=== PATIENT | male | born 1940 | race Caucasian/White ===

== ENCOUNTER → 2017-08-05 15:47 | Outpatient (CLI) | payer OTHER, MEDICARE, SELFPAY ==
--- NOTE | 2017-08-05 | FLU_PTH ---
PATIENT: MANN ANNE LOC: [facility] U#:[id number] AGE/SX: 84/M ROOM: RE08/05/[address]: Dr. Morgan Carmen MD : 1940 BED: DIS: SPEC #: [id number] RECD: 08/07/17 09:18 STATUS: SAJI IVETTE #: [id number] AMIE: 08/05/17 00:[address]: Morgan Carmen DEPT: CYTOLOGY RECD BY: Carlos Stoll Tissues: Neck, NOS Procedures: Special Stain Group II Surgery Specimen Level IV Cytospin Fluid HEADER OPERATION: Fine needle aspiration biopsy PRE-OP DIAGNOSIS: Localized swelling, mass and lump, neck R22.1; squamous cell carcinoma of skin, previously excised with healing incision over left mu-ism C44.92 TISSUE SUBMITTED: Fine needle aspiration biopsy DIAGNOSIS CYTOLOGY Neck mass, FNA (smears, cytospin and cell block): A few atypical squamous cells including keratinizing squamous cells are noted. SJ:alana 08/07/17 COMMENT If there is a high suspicion of malignancy, biopsy of the lesion is suggested if clinically indicated. CYTOLOGY STUDY Slides are reviewed. CYTOLOGY GROSS Received is 30 ml of red cloudy fluid labeled with the patient's name and and designated per the requisition as neck mass. Submitted for cytology preparation including cell block. / 08/06/17 TC:5 CPT: 23523, 76741
== END ==
PROVIDERS: Visit Provider Otolaryngology
DX: R22.1 Localized swelling, mass and lump, neck (principal)
CPT/HCPCS: 88108; 88305; 88313

== ENCOUNTER 2017-09-26 16:56 | Observation (INO) | payer OTHER, MEDICARE, SELFPAY ==
[2017-09-26] VITALS (9 sets, daily range): BP systolic 111–156; BP diastolic 69–95; PULSE 98–115; RESP 16–18; TEMP 36.2–36.9; O2SAT 90–98; BMI 30.9
--- NOTE | 2017-09-26 | PAR_PTH ---
PATIENT: MANN ANNE LOC: [facility] U#:[id number] AGE/SX: 77/M ROOM: NH320 RE09/26/[address]: Dr. Morgan Carmen MD : 1940 BED: 1 DIS: 09/27/2017 SPEC #: [id number] RECD: 09/26/17 14:30 STATUS: SAJI REReynaldo #: [id number] AMIE: 09/26/17 00:[address]: Morgan Carmen DEPT: SURGICAL PATHOLOGY RECD BY: Tracy Arzola ENTERED: 09/26/17 14:52 SP TYPE: PAROTID OTHR DR: Dr. Pete Jones, DO Tissues: A - Parotid gland, NOS B - LYMPH NODE BIOPSY Procedures: Frozen Section (charge) Surgery Specimen Level IV HEADER OPERATION: Parotidectomy, advancement flap reconstruction PRE-OP DIAGNOSIS: Metastatic squamous cell carcinoma TISSUE SUBMITTED: A - Left metastatic intraparotid malignancy, single stitch short ? posterior, long double stitch ? superior, B ? Left subcutaneous mass, C. Left superficial parotid FROZEN SECTION DIAGNOSIS A. Left metastatic intraparotid malignancy, two lesions: Both lesions, squamous cell carcinoma. Smaller lesion, margins are free of carcinoma. Larger lesion, margins are grossly free of carcinoma. B. Left subcutaneous mass, biopsy: Lymph node tissue, negative for metastatic carcinoma. SJ:alana 09/26/17 MICROSCOPIC DIAGNOSIS A. Left metastatic intraparotid malignancy, excisional biopsy: Invasive moderately differentiated squamous cell carcinoma x2. See cancer summary below. B. Left subcutaneous mass, biopsy: Lymph node tissue, negative for metastatic carcinoma. C. Left parotid, superficial parotidectomy:: Major salivary gland tissue, negative carcinoma. Four lymph nodes, negative for metastatic carcinoma. SQUAMOUS CELL CARCINOMA SUMMARY (including specimen A,B, C): Procedure - Excision Tumor site - Face Tumor size ? smaller lesion 07 x 0.5 x 0.2 cm, larger lesion 3 x 2 x 2 cm Histologic Type ? squamous cell carcinoma Histologic Grade - well to moderately differentiated Maximum tumor thickness ? 2 cm Anatomic level ? carcinoma invades subcutaneous tissue, underlying skeletal muscle tissue Margins: Peripheral margins ? uninvolved by invasive carcinoma Deep margin ? focally involved by invasive carcinoma a larger lesion) Smaller tumor is 0.4 cm away from the superior margin Larger tumor edge 0.4 cm away from the posterior margin Lymph-Vascular invasion ? not identified Perineural invasion ? present, frequent Lymph nodes: Number examined ? 5 (specimen B and C) Number involved by metastatic ca - 0 Additional pathologic findings ? adjacent parotid salivary gland tissue (parotid gland) negative for carcinoma Pathologic Staging: pT2, pN0, MX The above summary is in compliance with [employer] (CAP) Cancer Protocols Checklist and [place] [employer] on Cancer (AJCC), Staging Manual, 7th Ed. COMMENT C. Parotid gland tissue appears unremarkable. Please make reference to previous specimen ([id number] neck mass, FNA with a diagnosis of a few atypical squamous cells including keratinizing squamous cells are noted. Case has been reviewed in consultation with Dr. Polk who concurs with the above diagnosis. IDC:AM MICROSCOPIC DESCRIPTION Slides are reviewed. GROSS DESCRIPTION A - Received fresh for frozen section diagnosis labeled with the patient's name is a specimen designated left metastatic intraparotid malignancy, single stitch short ? posterior, long double stitch ? superior.? The specimen consists of a piece of skin with underlying tissue measuring 8.5 x 4 x 1 cm. The specimen is irregular in shape. The specimen is inked as follows: superior ? blue, inferior ? green, anterior ? yellow, posterior ? black and deep margin ? orange. The skin surface shows two lesions. The smaller one 0.4 cm away from the superior margin measures 0.7 x 0.5 x 0.2 cm and the larger raised nodular lesion measures 3 x 2 x 2 cm. This is 0.4 cm away from the closest posterior margin. Sections of both nodules reveal jacobson solid cut surfaces. Two frozen sections are done, 1 - smaller lesion, entirely submitted, 2 ? one section from the larger lesion including posterior margin. More dictation will follow after overnight fixation. More sections are submitted as follows: 3 ? superior inferior margin. 4 ? uninvolved portion of the skin. 5-11 - entire tumor, 12 contains tumor to just inferior margin, 13 ? contained tumor just to inferior margin. Both tumors are submitted in entirety. / CARSON:alana 09/26/17/Susana 09/28/17 B - Received fresh for frozen section diagnosis labeled with the patient's name is a specimen designated left subcutaneous mass. The specimen consists of a piece of jacobson soft tissue measuring 0.5 x 0.5 x 0.2 cm. The entire specimen is submitted for frozen section diagnosis in one cassette. / CARSON:alana 09/26/17 C - Received in fixative is one container labeled with the patient's name and designated left superficial parotid. The specimen weighs 27 grams and measures 7 x 4.5 x 2.5 cm. The external surface is inked black. Serial section did not reveal any mass lesion. [employer] sections are submitted in 8 cassettes. Susana 09/28/17 TC: 0 CPT: 05712K0, 62234, 82874 x2, 23502
[2017-09-26 11:28] LABS: International Normalized Ratio 1.2; Prothrombin Time (Protime)PT. 14.8 SECONDS (11.7-14.9)
[2017-09-26 11:29] LABS: Partial Thromboplast Time 41.7 Seconds (24.1-36.2)
[2017-09-26 11:30] LABS: Bedside Glucose 142 mg/dL (70-110)
[2017-09-26 12:00] LABS: AST(SGOT) 10 U/L (15-37); Alanine Aminotransfer ALT/SGPT 19 U/L (16-61); Albumin, Serum 3.7 g/dL (3.2-5.0); Alkaline Phosphatase 86 U/L (45-117); Bilirubin, Direct 0.21 mg/dL (0.00-0.30); Globulin 4.3 g/dL (2.2-4.2); Hemoglobin A1c 6.8 % (4.2-6.3)
[2017-09-26] MEDS: Bacitracin 500 UNITS/GM PACKET (15:56)
--- NOTE | 2017-09-26 16:27 | PCM.OPRPT ---
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 Most recently he had been excised over the left jainism which locally recurred as well as an enlarging intraparotid lymph node and left-sided space that biopsy showed to be involved with carcinoma. He was seen for surgical evaluation as well as oncologic assessment for primary radiation therapy and elected surgical treatment at the encouragement of his radiation therapist for the potential for cure. The risks, alternatives, potential benefits, and complications were discussed at length and any questions answered to the patient and/or caregiver's satisfaction. Witnessed informed consent was obtained in the office, and the patient and/or caregiver was agreeable to proceed. Procedure went as follows: The patient was identified in the preoperative holding and brought to the operating room where he was placed under general anesthesia and intubated. When appropriate anesthesia was obtained, the left side of the face was prepped and draped in usual sterile fashion after placement of the facial nerve monitoring electrodes which were confirmed to be operational in accordance with the manufactures directions prior to proceeding. The planned skin incision was then marked with a marking pen including a wide margin around the recurrent squamous cell carcinoma of the left jainism and 2 x 2.5 cm intraparotid lymph node just anterior to the tragus. An additional descending limb to allow for superficial parotidectomy for evacuation of the lymph node bed was additionally marked and then injected with a total of 10 cc of 1% lidocaine with 1-200,000 epinephrine. The area of involved jainism skin and overlying skin of the parotid which involved with the malignancy was then sharply incised with 15 blade scalpel through the skin and subcutaneous tissue with a total resection area of approximately 10 x 5 cm. The dissection plane was then carried out deep overlying the facial musculature to allow wide resection of the involved skin and parotid gland. This was then sent for pathologic evaluation which revealed a recurrent squamous cell carcinoma at his primary skin resection as well as a metastatic mass that appeared to be completely excised within the surgical resection. The descending limb of the incision was then created with 15 blade scalpel and a superficial parotidectomy was then carried out given the prior resection the peripheral branch of the facial nerve was identified and followed working superficial to deep in the superior aspect preserving the facial nerve branches and the nerve trunk dissection was then carried out along the inferior branches dissecting the parotid tissue and lymph node bed free which was then sent for pathologic evaluation. This completed the superficial parotidectomy with preservation of the facial nerve portion of the procedure. Attention was then turned to reconstruction of the defect over the left side of the face. The skin was then widely undermined superiorly and inferiorly and a flap area of approximately 10 x 20 cm was then advanced and rotated superiorly and anteriorly to allow for closure of the defect. The wound was closed with interrupted 3-0 Vicryl sutures followed by 5-0 Prolene interrupted sutures to the skin after placement of a #7 flat JARRET drain was brought out through a separate stab incision in the skin and secured with a nylon suture. The facial nerve monitoring electrodes were then removed and the patient returned to anesthesia having tolerated the procedure well. Intraoperative stimulation of the facial nerve trunk and orbital branch showed preservation of nerve function at completion of the procedure. Type of Anesthesia:: General Anesthesiologist: Alex Rodriguez Special Medications: none Specimen's removed: malignant lesion of skin of face, parotid gland Drains: #7 flat JARRET Estimated Blood Loss (mL): 150 mL Fluids Replaced: 2000 mL Grafts/Implants Used: none - Complications none - Admit VTE Documentation VTE Present on Admission: No VTE Mechan Device Prophylaxis: SCD's VTE Pharm Prophylaxis ordered?: No
--- NOTE | 2017-09-26 16:37 | OP.PCM_ITS ---
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 Most recently he had been excised over the left mu-ism which locally recurred as well as an enlarging intraparotid lymph node and left-sided space that biopsy showed to be involved with carcinoma. He was seen for surgical evaluation as well as oncologic assessment for primary radiation therapy and elected surgical treatment at the encouragement of his radiation therapist for the potential for cure. The risks, alternatives, potential benefits, and complications were discussed at length and any questions answered to the patient and/or caregiver's satisfaction. Witnessed informed consent was obtained in the office, and the patient and/or caregiver was agreeable to proceed. Procedure went as follows: The patient was identified in the preoperative holding and brought to the operating room where he was placed under general anesthesia and intubated. When appropriate anesthesia was obtained, the left side of the face was prepped and draped in usual sterile fashion after placement of the facial nerve monitoring electrodes which were confirmed to be operational in accordance with the manufactures directions prior to proceeding. The planned skin incision was then marked with a marking pen including a wide margin around the recurrent squamous cell carcinoma of the left mu-ism and 2 x 2.5 cm intraparotid lymph node just anterior to the tragus. An additional descending limb to allow for superficial parotidectomy for evacuation of the lymph node bed was additionally marked and then injected with a total of 10 cc of 1% lidocaine with 1-200,000 epinephrine. The area of involved mu-ism skin and overlying skin of the parotid which involved with the malignancy was then sharply incised with 15 blade scalpel through the skin and subcutaneous tissue with a total resection area of approximately 10 x 5 cm. The dissection plane was then carried out deep overlying the facial musculature to allow wide resection of the involved skin and parotid gland. This was then sent for pathologic evaluation which revealed a recurrent squamous cell carcinoma at his primary skin resection as well as a metastatic mass that appeared to be completely excised within the surgical resection. The descending limb of the incision was then created with 15 blade scalpel and a superficial parotidectomy was then carried out given the prior resection the peripheral branch of the facial nerve was identified and followed working superficial to deep in the superior aspect preserving the facial nerve branches and the nerve trunk dissection was then carried out along the inferior branches dissecting the parotid tissue and lymph node bed free which was then sent for pathologic evaluation. This completed the superficial parotidectomy with preservation of the facial nerve portion of the procedure. Attention was then turned to reconstruction of the defect over the left side of the face. The skin was then widely undermined superiorly and inferiorly and a flap area of approximately 10 x 20 cm was then advanced and rotated superiorly and anteriorly to allow for closure of the defect. The wound was closed with interrupted 3-0 Vicryl sutures followed by 5-0 Prolene interrupted sutures to the skin after placement of a #7 flat JARRET drain was brought out through a separate stab incision in the skin and secured with a nylon suture. The facial nerve monitoring electrodes were then removed and the patient returned to anesthesia having tolerated the procedure well. Intraoperative stimulation of the facial nerve trunk and orbital branch showed preservation of nerve function at completion of the procedure. Type of Anesthesia:: General Anesthesiologist: Alex Rodriguez Special Medications: none Specimen's removed: malignant lesion of skin of face, parotid gland Drains: #7 flat JARRET Estimated Blood Loss (mL): 150 mL Fluids Replaced: 2000 mL Grafts/Implants Used: none - Complications none - Admit VTE Documentation VTE Present on Admission: No VTE Mechan Device Prophylaxis: SCD's VTE Pharm Prophylaxis ordered?: No
[2017-09-26 17:41] LABS: Bedside Glucose 165 mg/dL (70-110)
[2017-09-26] MEDS: Acetaminophen 325 MG Tablet 650 MG PO ×2 (18:43→22:58)
[2017-09-26] MEDS: Cilostazol 50 MG Tablet 100 MG PO (22:14)
[2017-09-26] MEDS: Pravastatin 80 MG Tablet PO (22:14)
[2017-09-26] MEDS: Carvedilol 3.125 MG TABLET PO (22:14)
[2017-09-27] MEDS: Lactated Ringers 1,000 ML 120 ML IV (00:20)
[2017-09-27 03:16] VITALS: RESP 18
[2017-09-27 04:15] VITALS: BP 139/90; PULSE 114; RESP 16; TEMP 36.9; O2SAT 96
[2017-09-27] MEDS: Acetaminophen 325 MG Tablet 650 MG PO ×2 (04:15→08:41)
[2017-09-27] MEDS: Gemfibrozil 600 MG Tablet PO (07:50)
--- NOTE | 2017-09-27 08:22 | PCM.DC ---
- Discharge Diagnoses Current Active Problems: Current Active and Chronic Problems Secondary malignant neoplasm (Acute) Squamous cell carcinoma of skin (Acute) You will use the following diet at home:: Calorie/Carbohydrate Controlled (specify 1200, 1400, etc) - 2000 Kcal Your food should be the consistency of: Regular Discharge Activity: Return to Normal Activity, - - may shower in 48 hours Call your doctor if your incision/area has: Increased Pain/ Swelling, Increased Redness, Foul Smelling Discharge, Swelling at the incision site Call your doctor if you observe: Fever of 101 or Higher, Uncontrolled pain Cleanse incision/area with: Keep Dressing Clean & Dry Allergies/Adverse Reactions: Allergies Sulfa (Sulfonamide Antibiotics) Allergy (Verified 09/22/17 14:52) Hives hydromorphone [From Dilaudid] Adverse Reaction (Verified 09/26/17 17:28) HALLUCINATIONS Medications to take at Discharge Aspirin E.C. [Ecotrin] 81 mg PO SUMOWEFR 09/22/17 Brimonidine Tartrate/Timolol [Combigan 0.2%-0.5% Eye Drops] 1 drop EACHEYE DAILY 09/22/17 Carvedilol [Coreg] 3.125 mg PO BID 09/22/17 Cilostazol 100 mg PO BID 09/22/17 Diltiazem HCl [Diltiazem 24Hr ER] 180 mg PO DAILY 09/22/17 Gemfibrozil [Lopid] 600 mg PO DAILY 09/22/17 Multivitamin [Multiple Vitamins] 1 each PO DAILY 09/22/17 Pantoprazole Sodium [Protonix] 40 mg PO DAILY 09/22/17 Pravastatin Sodium 80 mg PO QHS 09/22/17 Sitagliptin Phosphate [Januvia] 100 mg PO DAILY 09/22/17 Vit C/E/Zn/Coppr/Lutein/Zeaxan [Preservision Areds 2 Softgel] 1 each PO BID 09/22/17 Primary Care Physician: Pete Jones [Primary Care Provider] - Please Follow Up With: Morgan Carmen MD When: 4 days Proposed Discharge Date: 09/27/17
--- NOTE | 2017-09-27 08:28 | PN.SURG_ITS ---
Patient Problems: Active and Suspected Problems Secondary malignant neoplasm (Acute) Squamous cell carcinoma of skin (Acute) Subjective: States feeling well, significantly reduced pain at tumor site after resection. Objective: Well appearing. Skin advancement flap with excellent capillary refill, no duskiness or pallor. Facial movement intact and full throughout. - Physical Exam General: Alert, Oriented x3, Cooperative, No apparent distress HEENT: Atraumatic, PERRLA, EOMI, Normocephalic, - - neck incision clean dry and intact without redness or discharge Oral: Moist Mucosa Neck: Supple, Trachea Midline Lungs: Normal air movement Cardiovascular: Regular rate, Regular Rhythm Neurological: Cranial nerves II-XII grossly intact Psych/Mental Status: Normal Affect, Alert and oriented to time, place, person, mood and affect Vital Signs Temp Pulse Resp BP Pulse Ox 98.4 F 114 H 16 139/90 H 96 09/27/17 04:15 09/27/17 04:15 09/27/17 04:15 09/27/17 04:15 09/27/17 04:15 Oxygen Flow Rate (L/min) 1 Oxygen Delivery Method Nasal Cannula Weight: 92.5 kg Body Mass Index (BMI) 30.9 Finger Stick Blood Glucose 165 Intake and Output for Last 24 Hours 09/25/17 09/26/17 09/27/17 23:59 23:59 23:59 Intake Total 3070 / 3070 1150 / 1150 Output Total 895 / 895 500 / 500 Balance 2175 / 2175 650 / 650 Laboratory Tests Past 24 Hrs 09/26/17 09/26/17 09/26/17 11:10 11:10 11:10 PT 14.8 INR 1.2 APTT 41.7 H Hemoglobin A1c 6.8 H Total Bilirubin 0.60 Direct Bilirubin 0.21 AST 10 L ALT 19 Alkaline Phosphatase 86 Total Protein 8.0 Albumin 3.7 Globulin 4.3 H POC Glucose 09/26/17 09/26/17 17:36 11:22 POC Glucose 165 H 142 H Medical Necessity - Tobacco Use Smoking Status: Former smoker Assessment/Plan All Active Problems Secondary malignant neoplasm (Acute) Squamous cell carcinoma of skin (Acute) Doing well after broad resection and reconstruction of malignant skin cancer over left orthodoxy and parotid gland. Minimal drain output and removed at bedside. Discharge to home today with follow-up next week.
[2017-09-27] MEDS: Multivitamins,Therapeutic Tablet 1 TABLET PO (08:41)
[2017-09-27 08:45] VITALS: PULSE 116
[2017-09-27 09:32] VITALS: BP 142/85; PULSE 83; RESP 18; TEMP 36.7; O2SAT 97
== END 2017-09-27 10:01 | disposition home or self-care (01) ==
LOC: MS3 16:56 → SDC 16:59
PROVIDERS: Admitting Provider Otolaryngology; Visit Provider Otolaryngology
PROC: (CPT 42410; principal; 2017-09-26 12:00)
PROC: (CPT 14041; 2017-09-26 12:00)
DX: C44.329 Squamous cell carcinoma of skin of other parts of face (principal); C79.89 Secondary malignant neoplasm of other specified sites; E11.9 Type 2 diabetes mellitus without complications; K21.9 Gastro-esophageal reflux disease without esophagitis; I48.91 Unspecified atrial fibrillation; I10 Essential (primary) hypertension; E78.5 Hyperlipidemia, unspecified; I51.9 Heart disease, unspecified; M19.90 Unspecified osteoarthritis, unspecified site; Z79.899 Other long term (current) drug therapy; Z79.82 Long term (current) use of aspirin; Z79.84 Long term (current) use of oral hypoglycemic drugs; Z95.1 Presence of aortocoronary bypass graft; Z87.891 Personal history of nicotine dependence
CPT/HCPCS: 14041; 42415; 80076; 82962; 83036; 85610; 85730; 88305; 88331; 96360; 96361; 99218; J7120; G0378; J2405; J3490

== ENCOUNTER → 2017-10-06 19:16 | Outpatient (CLI) | payer OTHER, MEDICARE, SELFPAY | PROVIDERS: Visit Provider Otolaryngology | DX: T81.4XXA Infection following a procedure, initial encounter (principal) | CPT/HCPCS: 87070; 87077; 87186; 87205 ==